=== PATIENT | male | born 1945 | race Caucasian/White ===

== ENCOUNTER 2016-06-04 08:50 | Day surgery (SDC) | payer OTHER ==
--- NOTE | 2016-05-17 11:33 | EKG Report ---
Test Performed on : 05/17/2016 11:17:34 AM Test Reason : PAT Blood Pressure : / mmHG Vent. Rate : 062 BPM Atrial Rate : 062 BPM P-R Int : 160 ms QRS Dur : 104 ms QT Int : 396 ms P-R-T Axes : 058 015 024 degrees QTc Int : 401 ms Normal sinus rhythm. Normal ECG No previous ECGs available Confirmed by Alexis Sánchez MD ([id number]) on 05/19/2016 9:05:00 PM
[2016-05-17 12:26] LABS: HEMATOCRIT 42.8 % (42.0-52.0); HEMOGLOBIN 14.2 g/dL (14.0-18.0); MCH 30.5 PG (27-31); MCHC 33.2 g/dL (33-37); MPV 10.3 FL (7.4-10.4); RBC 4.65 XMIL (4.7-6.1)
[2016-05-17 12:59] LABS: CALCIUM 9.4 mg/dL (8.8-10.2); POTASSIUM 4.6 mmol/L (3.5-5.1)
[2016-06-04] MEDS ORDERED: VANCOMYCIN 1 GM/NS 250 ML ONE (09:12)
[2016-06-04] MEDS ORDERED: LR 1,000 ML ONE (09:12)
--- NOTE | 2016-06-04 09:34 | EKG Report ---
Test Performed on : 06/04/2016 09:20:06 AM Test Reason : pre op Blood Pressure : / mmHG Vent. Rate : 062 BPM Atrial Rate : 062 BPM P-R Int : 160 ms QRS Dur : 106 ms QT Int : 392 ms P-R-T Axes : 051 015 027 degrees QTc Int : 397 ms Normal sinus rhythm. Normal ECG When compared with ECG of 17-MAY-2016 11:17, No significant change was found Confirmed by Rolanda LUIS, Aiden Ferrer ([id number]) on 06/04/2016 3:42:23 PM
[2016-06-04] MEDS ORDERED: NEOSPORIN G.U. IRRIGANT ONE (12:08)
[2016-06-04] MEDS ORDERED: GENTAMICIN ONE (12:08)
[2016-06-04] MEDS ORDERED: VANCOMYCIN ONE (12:08)
[2016-06-04] MEDS ORDERED: BACITRACIN OINTMENT ONE (12:08)
[2016-06-04] MEDS ORDERED: SODIUM CHLORIDE 0.9% 20 ML ONE (12:08)
[2016-06-04] MEDS ORDERED: PROTAMINE SULFATE ONE (12:09)
[2016-06-04] MEDS ORDERED: BACITRACIN ONE (12:09)
[2016-06-04] MEDS ORDERED: GENTAMICIN 100 MG/NS 100 ML ONE (12:16)
[2016-06-04] MEDS ORDERED: DIPRIVAN 1% ONE (16:05)
[2016-06-04] MEDS ORDERED: FENTANYL ONE (16:05)
[2016-06-04] MEDS ORDERED: SODIUM CHLORIDE 0.9% 10 ML ONE (16:24)
[2016-06-04] MEDS ORDERED: ZOFRAN ONE (16:24)
[2016-06-04] MEDS ORDERED: EPHEDRINE ONE (16:24)
[2016-06-04] MEDS ORDERED: QUELICIN (DOSE) ONE (16:25)
[2016-06-04] MEDS ORDERED: XYLOCAINE-MPF 2% ONE (16:25)
[2016-06-04] MEDS ORDERED: CLAVE SECONDARY SET 11953 ONE (16:25)
[2016-06-04] MEDS ORDERED: OFIRMEV 1000 MG/ISOTONIC SOLN 100 ML ONE (16:25)
[2016-06-04] MEDS ORDERED: DECADRON ONE (16:25)
[2016-06-04] MEDS ORDERED: LR 2,000 ML ONE (16:25)
[2016-06-04] MEDS ORDERED: PERCOCET-5 ONE (16:36)
--- NOTE | 2016-06-04 16:56 | OPERATIVE NOTE ---
PROCEDURE DATE: 06/04/2016 SURGEON: Carleen. PREOPERATIVE DIAGNOSIS: Defective inflatable penile implant. POSTOPERATIVE DIAGNOSIS: Defective inflatable penile implant. PROCEDURES PERFORMED: 1. Remove defective inflatable penile implant. 2. Place new inflatable penile implant. ANESTHESIA: General endotracheal. 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 The implant was originally placed in 2006. DESCRIPTION OF PROCEDURE: After informed consent was obtained from the patient, him receiving IV antibiotics, he was taken to the main OR, placed in a supine position. General endotracheal anesthesia was achieved. He was then prepped and draped in the usual sterile fashion for lower abdominal, penile, scrotal, and perineal surgery. A 16-[place] Turner catheter was passed through the patient's urethra and into the bladder with minimal difficulty, 10 mL of sterile water was placed in the Turner's balloon. The Turner was placed to gravity drain. Before the Turner was placed the urethra was filled with Betadine solution. After the Turner was placed a longitudinal incision was made across the penoscrotal junction. The urethra was palpated and the dartos tunica was incised. There was some scar tissue noted. The pump was palpated and pushed up and the tissue over the pump control was incised with the cutting current on the Bovie cautery. The pump was completely delivered. The capsule around the pump was excised. The pump tubing was incised using the cutting current down to each corpora. The Star ring retractor was placed. The pump was completely freed. The tubing from the reservoir came down on the left side. Rubber shod clamps were placed across each tubing, the reservoir and the left and right corporal tubing, and the pump was excised and passed off the field. The corporal tubing was followed down to the corpora cavernosa. Corporotomy was performed and the implant was removed. Both sides were accomplished similarly. A large amount of antibiotic irrigation was used after the implant was removed, irrigant, bacitracin fluid, vancomycin, protamine, hydrogen peroxide irrigants were used on both sides of the corpora and proximally. The corpora was remeasured and found to be a total of 20 cm in length on both sides. Then 2-0 Vicryl sutures using a UR6 needle was placed on either side of the corporotomy to use to close the corporotomy. The reservoir tubing was freed using the cutting current on the electrocautery all the way up to the pubic bone. An [facility] retractor was used to expose the very tip of the reservoir. The area was incised using electrocautery and the old reservoir was removed. The area was copiously irrigated with the antibiotic solutions mentioned above and a new reservoir was placed. Then 100 mL of water was placed in the reservoir and the tubing clamped with the rubber shod clamp. This allowed the capsule to expand. The new implant again using an 18 cm cylinder, AMS 700 CX with a 2 cm rear tip principle software engineer was placed on each side. This was easily placed through the corporotomy into each corpora both proximally and distally. The corporotomies were closed with the previously placed 2-0 Vicryl suture. The implant was inflated and it was in very good position. The implant was deflated. The pump control was placed in a subdartos pouch. It was held in position by bringing dartos tunica between the tubing with 2- 0 Vicryl sutures. An empty syringe was placed on the reservoir tubing and no back pressure was seen. The reservoir had 10 mL of water removed such that there was 90 mL in the reservoir. This was connected to the pump control with the standard connector. The tubing was buried beneath subcutaneous tissue and dartos tunica. A total of 2 layers were placed. The skin was reapproximated with a running suture of 4-0 Biosyn. Dermabond was placed, an OpSite was placed, and a scrotal turban dressing was then placed. The implant was left partially inflated. He will keep the penis up against the body wall. [facility] 48 hours to have the implant deflated. Estimated blood loss 30 mL. The Turner catheter was removed. He was taken to the recovery room extubated and in good condition.
[2016-06-04 17:35] VITALS: BP 145/86
== END 2016-06-04 17:40 | disposition home or self-care (01) ==
LOC: PAT 08:50
PROVIDERS: ATTEND Urology
DX: T83.89XA Other specified complication of genitourinary prosthetic devices, implants and grafts, initial encounter (principal); Z85.46 Personal history of malignant neoplasm of prostate
CPT/HCPCS: 80048; 82948; 85027; 93005; 93010; J0131; J0330; J1100; J1580; J2405; J2720; J3010; J3370; J7120